=== PATIENT | female | born 1980 ===

== ENCOUNTER 2017-11-13 22:09 | Emergency (ER) | payer OTHER ==
[2017-11-14 05:26] VITALS: BP 98/65; PULSE 62; RESP 16; TEMP 98; O2SAT 97
--- NOTE | 2017-11-15 10:20 | OBHP ---
Datetime: 11/13/2017 22:40 IP Adm Impression: Term, intrauterine ; No Active Labor IP Admit Plan: Observation/Evaluation; Discharge home Admit Comment, IP Provider: 36yo with IUP at 38.6wks presents here today c/o contraction pain s brian the morning. She denies any VB or LOF. Pt from [facility]. Pt is AMA and reports uncomplicated course. ROS: Denies dysuria and frequency PMHx: H/O Genital Herpes. Pt reports she was put on Valtrex. OB Hx: X2 [place]- Q 4-5, Vtx, Cx: FT/50/-3 Assessment: IUP at 38wks with Irregular Contractions, Nst Reactive. Plan: Recheck in 1 hour D/C Home If no cervical change Labor Instructions given to the Patient. F/u with OB clinic in 23 days if no spontaneous labor. Pelvic Type - PN: Adequate Extremities - PN: Normal Abdomen - PN: Normal Back - PN: Normal Breast - PN: Normal Lungs - PN: Normal Heart - PN: Normal Thyroid - PN: Normal Neurologic - PN: Normal HEENT - PN: Normal General - PN: Normal Presentation-Admit: Vertex FHR - Baseline A Provider: 130 Membranes, Provider: Intact Contraction Comments Provider: Q4-7 Comments, ACOG Physical Exam: Abd: Soft, NT, Bs- present Chest: CTA B/L Gestation - Est Wks by US: 38.6 EGA AdmitDate IP: 39.0 IP Chief Complaint: Uterine contractions; Maternal discomfort NICHD Variability Prov Fetus A: Moderate 6-25bpm NICHD Accel Fetus A IP Provider: 15X15 FHR Category Provider Fetus A: Category I NICHD Decel Fetus A IP Provider: None Dilatation, Provider: Ft Effacement, Provider: 50 Station, Provider: -3 Genitourinary Exam: Normal DTRs - PN: Normal
== END 2017-11-14 00:20 | disposition home or self-care (01) ==
LOC: H.EROB2 22:09
DX: O26.93 Pregnancy related conditions, unspecified, third trimester (principal); R10.2 Pelvic and perineal pain; O47.1 False labor at or after 37 completed weeks of gestation; Z3A.38 38 weeks gestation of pregnancy

== ENCOUNTER 2017-11-14 23:10 | Inpatient (IN) | payer OTHER ==
[2017-11-15] MEDS: Lactated Ringer's 1,000 ML IV SCH ×2 (00:30→01:30)
[2017-11-15 00:56] VITALS: BMI 31.1
[2017-11-15] MEDS ORDERED: Lactated Ringer's 1,000 ML IV SCH (01:00)
[2017-11-15 01:13] LABS: BASO % 0.3 % (0.0-2.0); EOS % 0.3 % (0.0-4.0); HEMOGLOBIN 13.1 g/dL (12.0-16.0); LYMPH # 1.9 K/uL (1.0-4.3); MEAN CORPUSCULAR HEMOGLOBIN 31.3 pg (27.0-31.0); MEAN CORPUSCULAR HGB CONC 34.8 g/dL (33.0-37.0); MEAN PLATELET VOLUME 9.1 fl (7.2-11.7); MONO # 0.8 K/uL (0.0-0.8); MONO % 7.9 % (0.0-10.0); NEUT # 6.9 K/uL (1.8-7.0); NEUT % 71.5 % (50.0-75.0); NRBC % 0.1 % (0.0-0.0); RBC 4.19 Mil/uL (3.80-5.20); RED CELL DISTRIBUTION WIDTH 13.6 % (11.5-14.5); WHITE BLOOD COUNT 9.7 K/uL (4.8-10.8)
[2017-11-15 01:41] VITALS: O2SAT 98
[2017-11-15] MEDS ORDERED: Fentanyl/Bupivacaine HCl 250 ML EPI ONE (02:45)
[2017-11-15] MEDS ORDERED: Bupivacaine HCl 0.25% PF (10 ml) Inj ONE (02:45)
[2017-11-15] MEDS ORDERED: Benzocaine/Menthol SPRAY TOP PRN ×2 (05:48→06:33)
[2017-11-15] MEDS ORDERED: Oxycodone/Acetaminophen 5/325 mg Tab PO PRN ×4 (05:48→06:33)
--- NOTE | 2017-11-15 05:50 | OBDS ---
MATERNAL INFORMATION Provider Comments: Uncomplicated Spontanoeus Vaginal delivery of a viable male infant with BW of 323 5gms and scores of 9 and 9 delivered over an intact vagina/perineum. LABOR SUMMARY EDC: 11/21/2017 00:00 LABOR INFORMATION Group B Beta Strep: Negative MEMBRANES Membranes Rupture Method: Spontaneous Amniotic Fluid Color: Particulate Meconium Amniotic Fluid Amount: Large Amniotic Fluid Odor: Normal VAGINAL DELIVERY Episiotomy: None Laceration Extension: N/A Laceration Type: None IDENTIFICATION/MEDS BABY A ID Band Number: [id number]
--- NOTE | 2017-11-15 05:52 | OBADHP ---
Datetime: 11/15/2017 00:32 Admit Comment, IP Provider: Ariel Tracy # [id number] 36 yo with IUP at 39.1 weeks GA, EDC 11/21/17 based on 2nd trimester US not c/w with LMP pr esents to [facility] with c/o ctx since 5 pm on 11/14/17. Pt reports CTX q5 min with more intensity and dura tion. Pt reports mucus plus with tinged blood yesterday. Denies LOF. Reports +FM. Pt has hx herpes ge nitalis and currently taking acyclovir 400 mg PO bid. Denies any active genital lesion. Pt is AMA an d reports uncomplicated course. ROS: All 12 systems reviewed and negative except at mentioned in HPI OB Hx: X2 , full term w/ no complications. Medications: PNV, acyclovir 400 mg BID Allergies: NKDA PMHx: H/O Genital Herpes. Pt reports she is on Valtrex BID pshx: Left ovary resection social hx: denies smoking cigarettes, EtOH, or drug use family hx: denies family hx CAD or HTN Assessment: 36 yo IUP @39.1 weeks GA has CTX q5min Plan: SVE: /-3 Admit to L_D Initiated labor protocol Continuous fetus heart tracing GBS negative Pain management: pt desires epidural Re-evaluate Sultan Talavera, pgy-1 Case d/w on-call OB Hospitalist Dr. Duvall . Pt seen and discussed and agrees with the above. Extremities - PN: Normal Abdomen - PN: Normal Back - PN: Normal Lungs - PN: Normal Heart - PN: Normal Neurologic - PN: Normal HEENT - PN: Normal General - PN: Normal FHR - Baseline A Provider: 130s Membranes, Provider: Intact Contraction Comments Provider: q5 Comments, ACOG Physical Exam: SVE: /-3 Pool Provider: Negative IP Hx Assessment: The History has been Reviewed and is Current Vital Signs Provider: Reviewed IP Chief Complaint: Uterine contractions; Maternal discomfort NICHD Variability Prov Fetus A: Moderate 6-25bpm NICHD Accel Fetus A IP Provider: 15X15 FHR Category Provider Fetus A: Category I NICHD Decel Fetus A IP Provider: None Dilatation, Provider: 4 Effacement, Provider: 60 Station, Provider: -3 Genitourinary Exam: Normal EGA AdmitDate IP: 39.1 IP Adm Impression: Term, intrauterine ; Active labor IP Admit Plan: Admit to unit; Initiate labor protocol Datetime: 11/13/2017 22:40 Pelvic Type - PN: Adequate Breast - PN: Normal Thyroid - PN: Normal Presentation-Admit: Vertex Gestation - Est Wks by US: 38.6 DTRs - PN: Normal
[2017-11-16 06:18] LABS: MEAN CELL VOLUME 91.7 fl (81.0-99.0); MEAN CORPUSCULAR HGB CONC 33.8 g/dL (33.0-37.0); RBC 3.86 Mil/uL (3.80-5.20); RED CELL DISTRIBUTION WIDTH 13.4 % (11.5-14.5)
[2017-11-16] MEDS ORDERED: Tdap Vaccine 0.5 ml Vial (10-64 yrs) IM ONE (09:00)
--- NOTE | 2017-11-16 10:51 | OBPPN ---
Datetime: 11/16/2017 07:04 PP Pain Prov: Within normal limits PP Nausea Prov: Denies PP Flatus Prov: Yes PP BM Prov: Yes PP Heart Prov: Normal PP Lungs Prov: Normal PP Abdomen/Uterus Prov: Normal PP Lochia Prov: Normal PP CVA Tenderness Prov: Normal PP Extremities Prov: Normal PP Impression Prov: Normal progression PP Plan Prov: Continue present management PP Progress Note Prov: PPD 1 36 y/o female now on PPD 1 seen and examined at bedside this morning. No overnight events. Reports pain is controlled with pain medications. Pt reports +BM last night. Voiding freely w/o bloo d noted. Ambulating well w/o dizziness. Lochia is similar to menses volume. Pt is the b jennifer w/o difficulty. Denies nausea, vomiting, fever, chills, chest pain or calf pain. Pt desires circu mcision for the baby. Physical Exam: General: A_O, resting comfortably in bed, NAD HEENT: oral mucosa moist. Lungs: CTA B/L, no wheezing, rhonchi or rales CVS: RRR, S1, S2 ABD: ND, +BS, firm fundus @ umbilical level. Soft, appropriate TTP. EXT: no edema, negative Michael's sign, Neuro/psych: AAOX3. Assessment: 36 y/o female now doing well on PPD 1 Plan: OOB w/ caution Regular diet Percocet and Ibuprofen for pain management Senokot for constipation consults for Encourage and ambulation Anticipate discharge tomorrow Sultan Talavera, pgy-1 Case d/w on-call OB hospitalist OB Hospitalist on-call. On rounds this morning, I saw patient and agree with note. MAHNDO H/H Vital Signs Provider PP: Reviewed
[2017-11-17 23:04] VITALS: BP 136/87; PULSE 99; RESP 20; TEMP 98.3
== END 2017-11-17 19:01 | disposition home or self-care (01) | DRG 373 ==
LOC: H.EROB2 23:10 → H.L&D 11-15 00:15 → H.OB/GYN 11-15 09:30
PROVIDERS: ADMIT Obstetrics & Gynecology; ATTEND Obstetrics & Gynecology
PROC: 10E0XZZ Delivery of Products of Conception, External Approach (ICD-10-PCS; principal; 2017-11-15)
DX: O80 Encounter for full-term uncomplicated delivery (principal); Z37.0 Single live birth; Z3A.39 39 weeks gestation of pregnancy; Z86.19 Personal history of other infectious and parasitic diseases

== ENCOUNTER 2017-11-27 12:41 | Emergency (ER) | payer OTHER ==
[2017-11-27 12:42] VITALS: BMI 31.1
[2017-11-27 12:52] VITALS: BP 113/61; PULSE 100; RESP 18; TEMP 99.2; O2SAT 99
--- NOTE | 2017-11-27 13:12 | ED PDOC ---
HPI: General Adult Time Seen by Provider: 11/27/17 13:11 Chief Complaint (Nursing): Breast Problem Chief Complaint (Provider): breast pain History Per: Patient, Family (Patient's son at bedside is translating for patient in Vincentian) Additional Complaint(s): 36-year-old female, 2 weeks presents with right breast pain and swelling 2 days. Patient also had subjective fever. Patient is having difficulty breast-feeding now due tp moderate pain to the right breast. She took Tylenol earlier which did help somewhat. Patient had normal vaginal delivery with no complications. PMD: none Past Medical History Reviewed: Historical Data, Nursing Documentation, Vital Signs Vital Signs: Last Vital Signs Temp 99.2 F 11/27/17 12:49 Pulse 100 H 11/27/17 12:49 Resp 18 11/27/17 12:49 BP 113/61 11/27/17 12:49 Pulse Ox 99 11/27/17 13:11 - Medical History PMH: No Chronic Diseases - Family History Family History: States: No Known Family Hx - Living Arrangements Living Arrangements: With Family - Social History Current smoker - smoking cessation education provided: No Alcohol: None Drugs: Denies - Home Medications Home Medications: Ambulatory Orders Medication Instructions Recorded Vit No.126/Iron/Folic 1 tab PO DAILY 11/15/17 [Classic Tablet] Ibuprofen [Motrin Tab] 600 mg PO Q6 PRN #30 tab 11/17/17 Clindamycin [Cleocin] 300 mg PO TID #21 cap 11/27/17 - Allergies Allergies/Adverse Reactions: Allergies Allergy/AdvReac Type Severity Reaction Status Date / Time No Known Allergies Allergy Verified 11/15/17 00:36 Review of Systems ROS Statement: Except As Marked, All Systems Reviewed And Found Negative Constitutional: Positive for: Fever (subjective) Cardiovascular: Positive for: Other (right breast pain) Respiratory: Negative for: Cough Gastrointestinal: Negative for: Nausea, Vomiting Physical Exam - Reviewed Nursing Documentation Reviewed: Yes Vital Signs Reviewed: Yes - Physical Exam Appears: Positive for: Well, Non-toxic, No Acute Distress Skin: Negative for: Rash Eye Exam: Positive for: Normal appearance Neck: Positive for: Normal Cardiovascular/Chest: Positive for: Regular Rate, Rhythm, Other (Erythema, warmth, tenderness and swelling noted to right breast, consistent with mastitis , no obvious fluid collection, no active drainage or bleeding from nipple, left breast is normal) Respiratory: Positive for: Normal Breath Sounds Extremity: Positive for: Normal ROM Neurologic/Psych: Positive for: Alert, Oriented - ECG O2 Sat by Pulse Oximetry: 99 Pulse Ox Interpretation: Normal Medical Decision Making Medical Decision Making: Impression: Right breast mastitis Plan: PO tylenol and motrin given Initial dose clindamycin given Patient expressed concern over difficulty breast-feeding. She was instructed to supplement with formula as needed. Prescriptions given for clindamycin. Advised Tylenol and Motrin for pain control and for fever. Advised clinic follow-up on Wednesday or return to ED any time if acutely worse. Disposition - Clinical Impression Clinical Impression: Mastitis - Patient ED Disposition Is Patient to be Admitted: No Counseled Patient/Family Regarding: Diagnosis, Need For Followup, Rx Given - Disposition [facility]errals[facility] Disposition: Routine/Home Disposition Time: 13:52 Condition: STABLE Additional Instructions: APPLY WARM COMPRESSES TO AFFECTED AREA. TAKE TYLENOL EVERY 4 HRS AND MOTRIN EVERY 6 HRS FOR FEVER AND PAIN SUPPLEMENT WITH FORMULA FOLLOW UP WITH CLINIC IN 2-3 DAYS OR RETURN ANY TIME IF ACUTELY WORSE. Prescriptions: Clindamycin [Cleocin] 300 mg PO TID #21 cap Instructions: Mastitis (DC) Forms: [email or web address] (Vincentian) Print Language: SYRIAN
== END 2017-11-27 14:13 | disposition home or self-care (01) ==
LOC: H.ER 12:41
DX: N61.0 Mastitis without abscess (principal)